=== PATIENT | male | born 1955 | race Two or more races ===

== ENCOUNTER 2022-08-22 18:03 | Emergency (ER) | payer MEDICARE ==
[~2022-08-22] VITALS: Ht 167.6 cm; Wt 75.0 kg
[2022-08-22 18:28] VITALS: BP 119/61
[2022-08-22] MEDS ORDERED: LIDOCAINE 5% TRANSDERMAL PATCH TD ONE (21:00)
[2022-08-22] MEDS ORDERED: CYCL-448 PO (21:12)
[2022-08-22] MEDS ORDERED: IBUP-1492 PO (21:12)
== END 2022-08-22 22:14 | disposition home or self-care (01) ==
LOC: EMS 18:07
DX: S39.012A Strain of muscle, fascia and tendon of lower back, initial encounter (principal); X50.0XXA Overexertion from strenuous movement or load, initial encounter; Y93.89 Activity, other specified; Y92.89 Other specified places as the place of occurrence of the external cause; Y99.8 Other external cause status
CPT/HCPCS: 99283